=== PATIENT | female | born 1935 | race African-American/Black ===

== ENCOUNTER 2017-05-22 12:03 | Emergency (ER) | payer MEDICARE, MEDICAID ==
[~2017-05-22] VITALS: Ht 162.6 cm; Wt 59.0 kg
[~2017-05-22 12:03] MED LIST: ASPI-1158; CARB-25; IBUP-2028; LOSA50TA3; METF500T4; METO-385; RASA1TAB; SIMV10TA2; VIT D2
[2017-05-22 12:39] VITALS: BP 141/82
[2017-05-22] MEDS ORDERED: KETOROLAC 60MG/2ML VIAL IM ONE (16:45)
== END 2017-05-22 17:12 | disposition home or self-care (01) ==
LOC: ER 13:00
DX: S46.911A Strain of unspecified muscle, fascia and tendon at shoulder and upper arm level, right arm, initial encounter (principal); X50.0XXA Overexertion from strenuous movement or load, initial encounter; Y93.89 Activity, other specified; Y92.89 Other specified places as the place of occurrence of the external cause; Z88.5 Allergy status to narcotic agent; Z79.899 Other long term (current) drug therapy; I10 Essential (primary) hypertension; E78.00 Pure hypercholesterolemia, unspecified; E11.9 Type 2 diabetes mellitus without complications; F17.210 Nicotine dependence, cigarettes, uncomplicated; G20 Parkinson's disease; M81.0 Age-related osteoporosis without current pathological fracture; Z98.890 Other specified postprocedural states
CPT/HCPCS: 96372; 99283; J1885